=== PATIENT | female | born 2000 | race Caucasian/White ===

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

== ENCOUNTER 2023-01-13 14:56 | Day surgery (SDC) | payer BC ==
[2023-01-13 16:03] LABS: BASOPHILS ABSOLUTE AUTO 0.01 K/mm3 (0.01-0.08); BASOPHILS PERCENT AUTO 0.1 % (0.1-1.2); EOSINOPHILS ABSOLUTE AUTO 0.07 K/mm3 (0.04-0.36); EOSINOPHILS PERCENT AUTO 0.8 (0.7-5.8); HEMOGLOBIN 13.4 gm/dl (11.2-15.7); IMMATURE GRAN ABSOLUTE AUTO 0.01 K/mm3 (0.00-0.10); IMMATURE GRAN PERCENT AUTO 0.1 % (<=1.0); LYMPHOCYTES ABSOLUTE AUTO 1.76 K/mm3 (1.18-3.74); LYMPHOCYTES PERCENT AUTO 19.9 % (19.3-51.7); MEAN CORPUSCULAR HEMOGLOBIN 28.4 pg (25.6-32.2); MEAN CORPUSCULAR HGB CONC 34.4 g/dl (32.2-35.5); MEAN CORPUSCULAR VOLUME 82.6 fl (79.4-94.8); MEAN PLATELET VOLUME 8.9 fl (9.4-12.3); MONOCYTES ABSOLUTE AUTO 0.67 K/mm3 (0.24-0.36); MONOCYTES PERCENT AUTO 7.6 % (4.7-12.5); NEUTROPHILS ABSOLUTE AUTO 6.34 K/mm3 (1.56-6.13); NEUTROPHILS PERCENT AUTO 71.5 % (34.0-71.1); PLATELET COUNT,PLT 350 K/mm3 (182-369); RED BLOOD CELL COUNT 4.72 M/mm3 (3.98-5.22); WHITE BLOOD CELL COUNT,WBC 8.86 K/mm3 (3.98-10.04)
[2023-01-13] MEDS ORDERED: Acetaminophen 325 MG Tab PO ONE (18:16)
[2023-01-13] MEDS ORDERED: ceFAZolin 2 GM in Sodium Chloride 0.9% 50 ML IV ONE (19:05)
[2023-01-13] MEDS ORDERED: Lidocaine 1% 2 ML ONE (19:23)
[2023-01-13] MEDS ORDERED: fentaNYL 100 MCG/2 ML SDV ONE (19:23)
[2023-01-13] MEDS ORDERED: Propofol 200 MG/20 ML SDV ONE (19:23)
[2023-01-13] MEDS ORDERED: Ondansetron 4 MG/2 ML SDV ONE (19:23)
[2023-01-13] MEDS ORDERED: Midazolam 1 MG/ML 2 ML SDV ONE (19:24)
[2023-01-13] MEDS ORDERED: Lidocaine 1% 20 ML MDV ONE (19:35)
[2023-01-13] MEDS ORDERED: Methylergonovine 0.2 MG/1 ML Amp ONE (20:00)
[2023-01-13] MEDS ORDERED: Oxytocin 10 Units/1 ML SDV ONE (20:20)
[2023-01-13] MEDS ORDERED: Acetaminophen/HYDROcodone 325-5 MG Tab PO ONE (22:30)
== END 2023-01-13 23:00 | disposition home or self-care (01) ==
LOC: JD.ED 14:56 → JD.SDS 19:32
PROVIDERS: ATTEND Obstetrics & Gynecology
DX: O01.0 Classical hydatidiform mole (principal); J45.909 Unspecified asthma, uncomplicated; K21.9 Gastro-esophageal reflux disease without esophagitis; G43.909 Migraine, unspecified, not intractable, without status migrainosus; F41.9 Anxiety disorder, unspecified; F32.A Depression, unspecified; F90.9 Attention-deficit hyperactivity disorder, unspecified type; Z91.040 Latex allergy status; Z88.8 Allergy status to other drugs, medicaments and biological substances; Z88.5 Allergy status to narcotic agent; Z79.899 Other long term (current) drug therapy; Z87.891 Personal history of nicotine dependence
CPT/HCPCS: 36415; 59870; 76817; 84702; 85025; 86850; 86900; 86901; 96365; 99284; A9270; J0690; J2210; J2250; J2405; J2590; J2704; J3010; J3490; 01965

== ENCOUNTER 2023-07-04 22:42 | Emergency (ER) | payer BC ==
[2023-07-04] MEDS ORDERED: diphenhydrAMINE 50 MG/ML SDV IVPUSH ONE (22:59)
[2023-07-04] MEDS ORDERED: Haloperidol Lactate 5 MG/ML SDV IVPUSH ONE (22:59)
[2023-07-04] MEDS ORDERED: Lactated Ringers 1,000 ML IV ONE (23:01)
[2023-07-04] MEDS ORDERED: Sodium Chloride 0.9% 10 ML Syringe FLUSH PRN (23:02)
[2023-07-04 23:05] LABS: BASOPHILS PERCENT AUTO 0.5 % (0.0-1.0); EOSINOPHILS PERCENT AUTO 0.1 % (0.0-6.0); HEMOGLOBIN 14.6 gm/dl (12.0-16.0); IMMATURE GRAN ABSOLUTE AUTO 0.02 K/mm3 (0.00-0.05); IMMATURE GRAN PERCENT AUTO 0.3 % (0.0-0.4); LYMPHOCYTES ABSOLUTE AUTO 2.4 K/mm3 (1.0-4.8); LYMPHOCYTES PERCENT AUTO 30.7 % (24.0-44.0); MEAN CORPUSCULAR HEMOGLOBIN 28.2 pg (28.0-32.0); MEAN CORPUSCULAR VOLUME 83.2 fl (83.0-99.0); MEAN PLATELET VOLUME 8.2 fl (9.4-12.3); MONOCYTES ABSOLUTE AUTO 0.6 K/mm3 (0.0-0.8); MONOCYTES PERCENT AUTO 7.5 % (0.0-8.0); NEUTROPHILS ABSOLUTE AUTO 4.8 K/mm3 (1.8-7.7); NEUTROPHILS PERCENT AUTO 60.9 % (41.0-71.0); PLATELET COUNT,PLT 391 K/mm3 (150-400); RED BLOOD CELL COUNT 5.17 M/mm3 (4.10-5.30); WHITE BLOOD CELL COUNT,WBC 7.89 K/mm3 (3.9-11.3)
[2023-07-04 23:17] LABS: APPEARANCE,URINE CLEAR (Clear); BILIRUBIN,URINE NEGATIVE (Negative); COLOR,URINE YELLOW (Yellow); GLUCOSE,URINE NEGATIVE (Negative); KETONES,URINE NEGATIVE (Negative); LEUKOCYTE ESTERASE,URINE NEGATIVE (Negative); NITRITE,URINE NEGATIVE (Negative); OCCULT BLOOD,URINE NEGATIVE (Negative); PROTEIN,URINE NEGATIVE (Negative); UROBILINOGEN,URINE 0.2 (0.2-1.0)
[2023-07-04 23:24] LABS: BARBITURATE SCREEN,URINE NEGATIVE (CUTOFF=200); BENZODIAZEPINES SCREEN,URINE NEGATIVE (CUTOFF=150); BUPRENORPHINE SCREEN,URINE NEGATIVE (CUTOFF=10); METHADONE SCREEN, URINE NEGATIVE (CUTOFF=200); METHAMPHETAMINES SCREEN, URINE NEGATIVE (CUTOFF=500); OXYCODONE SCREEN,URINE NEGATIVE (CUT0FF=100); THC SCREEN,URINE 20 NG/ML NEGATIVE (CUTOFF=50)
[2023-07-04 23:26] LABS: AMPHETAMINES SCREEN, URINE NEGATIVE (CUTOFF=500)
[2023-07-04 23:30] LABS: BACTERIA,URINE OCCASIONAL /hpf (FEW); MUCUS,URINE NOT SEEN /hpf (FEW); RBC,URINE 0-5 /hpf (0-5); SQUAMOUS EPITHELIAL CELLS,UR 0-5 /hpf (0-5); WBC,URINE 0-5 /hpf (0-5)
[2023-07-04 23:31] LABS: A/G RATIO 1.1 (1-2); ALANINE AMINOTRANSFERASE,ALT 32 U/L (14-59); ALBUMIN 4.3 g/dl (3.4-5.0); ALKALINE PHOSPHATASE 63 U/L (46-116); ANION GAP 17.5 (5-15); ASPARTATE AMNIOTRANSFERASE,AST 24 U/L (15-37); BILIRUBIN TOTAL 0.3 mg/dL (0.2-1.0); BLOOD UREA NITROGEN,BUN 4 mg/dL (7-18); BUN/CREATININE RATIO 4.4 (14-18); CALCIUM 8.8 mg/dL (8.5-10.1); CARBON DIOXIDE,CO2 22 mEq/L (21-32); CHLORIDE,CL 106 mEq/L (98-107); CREATININE 0.9 mg/dL (0.55-1.02); ESTIMATED GFR 93 mL/min (>60); ETHANOL BLOOD MEDICAL 0.23 gm% (0.00); GLUCOSE RANDOM 73 mg/dL (70-99); MAGNESIUM 2.2 mg/dL (1.8-2.4); PROTEIN TOTAL,TP 8.3 g/dl (6.4-8.2); SODIUM,NA 143 mEq/L (136-145)
[2023-07-04 23:32] LABS: POTASSIUM,K 2.5 mEq/L (3.5-5.1)
[2023-07-04] MEDS ORDERED: Potassium Chloride 20 MEQ Tab.ER PO ONE (23:34)
[2023-07-05] MEDS ORDERED: Potassium Chloride 20 MEQ Tab.ER ONE (05:33)
== END 2023-07-05 06:24 | disposition home or self-care (01) ==
LOC: JD.ED 22:42
DX: F10.921 Alcohol use, unspecified with intoxication delirium (principal); E87.6 Hypokalemia; Y90.7 Blood alcohol level of 200-239 mg/100 ml; Z86.16 Personal history of COVID-19; Z91.040 Latex allergy status; Z88.6 Allergy status to analgesic agent
CPT/HCPCS: 36415; 80053; 80306; 80307; 81001; 83735; 85025; 96374; 96375; 99284; A9270; J1200; J1630; J3490; J7120

== ENCOUNTER 2023-08-26 11:11 | Emergency (ER) | payer BC ==
[2023-08-26] MEDS: Albuterol/Ipratropium 3.0-0.5 MG/3 ML Neb Soln NEB ONE (12:16)
== END 2023-08-26 12:50 | disposition home or self-care (01) ==
LOC: JD.ED 11:11
DX: J45.909 Unspecified asthma, uncomplicated (principal); J40 Bronchitis, not specified as acute or chronic; Z88.5 Allergy status to narcotic agent; Z91.040 Latex allergy status; Z88.8 Allergy status to other drugs, medicaments and biological substances; Z79.899 Other long term (current) drug therapy; Z86.16 Personal history of COVID-19
CPT/HCPCS: 71046; 71046-26; 94640; 99283; 99285; J7620-GY

== ENCOUNTER 2024-04-15 07:06 | Inpatient (IN) | payer BC ==
[~2024-04-15 07:06] MED LIST: Bupivacaine 0.25% 10 ML SDV ONE; Lidocaine 1.5% with EPINEPHrine 1:200,000 5 ML Amp ONE
[2024-04-15] MEDS ORDERED: Ondansetron 4 MG/2 ML SDV IVPUSH PRN (07:16)
[2024-04-15] MEDS ORDERED: Nalbuphine 10 MG/1 ML Vial IVPUSH PRN (07:16)
[2024-04-15] MEDS ORDERED: Calcium Carbonate 500 MG Tab.Chew PO PRN (07:16)
[2024-04-15] MEDS ORDERED: Sodium Chloride 0.9% 10 ML Syringe FLUSH PRN (07:16)
[2024-04-15 07:44] LABS: BASOPHILS PERCENT AUTO 0.3 % (0.0-1.0); EOSINOPHILS ABSOLUTE AUTO 0.1 K/mm3 (0.0-0.4); EOSINOPHILS PERCENT AUTO 1.1 % (0.0-6.0); HEMATOCRIT 38.1 % (37.0-47.0); IMMATURE GRAN ABSOLUTE AUTO 0.06 K/mm3 (0.00-0.05); IMMATURE GRAN PERCENT AUTO 0.8 % (0.0-0.4); LYMPHOCYTES ABSOLUTE AUTO 1.8 K/mm3 (1.0-4.8); LYMPHOCYTES PERCENT AUTO 25.1 % (24.0-44.0); MEAN CORPUSCULAR HEMOGLOBIN 27.3 pg (28.0-32.0); MEAN CORPUSCULAR HGB CONC 32.5 g/dl (32.0-36.0); MEAN CORPUSCULAR VOLUME 83.9 fl (83.0-99.0); MEAN PLATELET VOLUME 9.4 fl (9.4-12.3); MONOCYTES ABSOLUTE AUTO 0.5 K/mm3 (0.0-0.8); MONOCYTES PERCENT AUTO 6.7 % (0.0-8.0); NEUTROPHILS ABSOLUTE AUTO 4.8 K/mm3 (1.8-7.7); RED BLOOD CELL COUNT 4.54 M/mm3 (4.10-5.30); WHITE BLOOD CELL COUNT,WBC 7.32 K/mm3 (3.9-11.3)
[2024-04-15 07:45] LABS: HEMOGLOBIN 12.4 gm/dl (12.0-16.0); PLATELET COUNT,PLT 162 K/mm3 (150-400)
[2024-04-15] MEDS ORDERED: Oxytocin/0.9 % Sodium Chloride 30 UNIT/500 ML BAG IV SCH (08:15)
[2024-04-15] MEDS: Oxytocin/0.9 % Sodium Chloride 30 UNIT/500 ML BAG IV SCH (08:30)
[2024-04-15] MEDS: Lactated Ringers 1,000 ML IV SCH (08:30)
[2024-04-15] MEDS ORDERED: Labetalol 100 MG Tab PO SCH (09:00)
[2024-04-15] MEDS ORDERED: Sodium Chloride 0.9% 10 ML Syringe FLUSH SCH (09:00)
[2024-04-15] MEDS: Labetalol 100 MG Tab PO SCH (09:04)
[2024-04-15] MEDS ORDERED: ePHEDrine 50 MG/ML SDV IVPUSH PRN (12:12)
[2024-04-15] MEDS ORDERED: diphenhydrAMINE 50 MG/ML SDV IVPUSH PRN (12:12)
[2024-04-15] MEDS: fentaNYL 100 MCG/2 ML SDV EPIDUR PRN (12:25)
[2024-04-15] MEDS: Bupivacaine/fentaNYL/NS 100 ML Bag EPIDUR PRN (12:25)
[2024-04-15] MEDS: Methylergonovine 0.2 MG/1 ML Amp IM STA ×3 (19:15→23:09)
[2024-04-15] MEDS: Ondansetron 4 MG/2 ML SDV IVPUSH ONE (19:40)
[2024-04-15] MEDS: Misoprostol 200 MCG Tab BUCCAL STA (20:18)
[2024-04-15] MEDS: Ibuprofen 600 MG Tab PO SCH (20:47)
[2024-04-15] MEDS: Benzocaine/Menthol 20%-0.5% Spray 78 GM Cannister TOP PRN (21:53)
[2024-04-15] MEDS: Acetaminophen 325 MG Tab PO PRN (21:53)
[2024-04-15] MEDS: Witch Hazel Medicated Pads 40/Jar TOP PRN (21:54)
[2024-04-15] MEDS ORDERED: Methylergonovine 0.2 MG/1 ML Amp IM SCH (23:15)
[2024-04-16] MEDS: Ondansetron 4 MG/2 ML SDV IVPUSH ONE (00:16)
[2024-04-16] MEDS: Lactated Ringers 500 ML IV ONE (00:26)
[2024-04-16] MEDS: Methylergonovine 0.2 MG/1 ML Amp IM SCH (03:39)
[2024-04-16] MEDS: Ibuprofen 600 MG Tab PO SCH (10:27)
[2024-04-16] MEDS: Docusate Sodium 100 MG Cap PO PRN (12:06)
== END 2024-04-16 22:00 | disposition home or self-care (01) | DRG 560 ==
LOC: JD.OB 07:06 → OBSVTOIN 19:08 → JD.OB 19:09
PROVIDERS: ADMIT Obstetrics & Gynecology; ATTEND Obstetrics & Gynecology
PROC: 10E0XZZ Delivery of Products of Conception, External Approach (ICD-10-PCS; principal; 2024-04-15)
PROC: 10907ZC Drainage of Amniotic Fluid, Therapeutic from Products of Conception, Via Natural or Artificial Opening (ICD-10-PCS; 2024-04-15)
PROC: 3E033VJ Introduction of Other Hormone into Peripheral Vein, Percutaneous Approach (ICD-10-PCS; 2024-04-15)
PROC: 3E0R3BZ Introduction of Anesthetic Agent into Spinal Canal, Percutaneous Approach (ICD-10-PCS; 2024-04-15)
PROC: 00HU33Z Insertion of Infusion Device into Spinal Canal, Percutaneous Approach (ICD-10-PCS; 2024-04-15)
PROC: 3E0P7VZ Introduction of Hormone into Female Reproductive, Via Natural or Artificial Opening (ICD-10-PCS; 2024-04-15)
DX: O62.2 Other uterine inertia (principal); Z37.0 Single live birth; Z3A.39 39 weeks gestation of pregnancy; Z91.040 Latex allergy status; Z88.8 Allergy status to other drugs, medicaments and biological substances; Z86.16 Personal history of COVID-19; Z87.891 Personal history of nicotine dependence
CPT/HCPCS: 36415; 51701; 51702; 59025; 59409; 85025; 86592; 86850; 86900; 86901; A9270-GY; C1758; J0665; J2210; J2405; J3010; J3490; J7120; J7999

== ENCOUNTER 2024-09-24 06:10 | Day surgery (SDC) | payer BC, MEDICAID ==
[~2024-09-24 06:10] MED LIST changes: -Bupivacaine 0.25% 10 ML SDV ONE; +Dexamethasone 4 MG/ML 5 ML MDV ONE; +Lactated Ringers 1,000 ML ONE; +Lidocaine 1% 4 ML ONE; -Lidocaine 1.5% with EPINEPHrine 1:200,000 5 ML Amp ONE; +Midazolam 1 MG/ML 2 ML SDV ONE; +Ondansetron 4 MG/2 ML SDV ONE; +Propofol 200 MG/20 ML SDV ONE; +Rocuronium 50 MG/5 ML Vial ONE; +Sodium Chloride 0.9% 10 ML Syringe FLUSH PRN; +Sodium Chloride 0.9% 10 ML Syringe FLUSH SCH; +ceFAZolin 2 GM Vial ONE; +dexmedeTOMIDine HCl 200 MCG/2 ML SDV ONE; +fentaNYL 250 MCG/5 ML SDV ONE
[2024-09-24] MEDS ORDERED: ePHEDrine 50 MG/ML SDV ONE (06:33)
[2024-09-24] MEDS: Lactated Ringers 1,000 ML IV SCH (06:38)
[2024-09-24] MEDS ORDERED: Glycopyrrolate 0.2 MG/ML 2 ML SDV ONE (06:40)
[2024-09-24 06:49] LABS: BASOPHILS PERCENT AUTO 0.5 % (0.0-1.0); EOSINOPHILS ABSOLUTE AUTO 0.2 K/mm3 (0.0-0.4); EOSINOPHILS PERCENT AUTO 2.6 % (0.0-6.0); HEMOGLOBIN 13.8 gm/dl (12.0-16.0); IMMATURE GRAN ABSOLUTE AUTO 0.02 K/mm3 (0.00-0.05); IMMATURE GRAN PERCENT AUTO 0.3 % (0.0-0.4); LYMPHOCYTES ABSOLUTE AUTO 3.1 K/mm3 (1.0-4.8); LYMPHOCYTES PERCENT AUTO 45.8 % (24.0-44.0); MEAN CORPUSCULAR HGB CONC 34.5 g/dl (32.0-36.0); MEAN PLATELET VOLUME 8.6 fl (9.4-12.3); MONOCYTES ABSOLUTE AUTO 0.4 K/mm3 (0.0-0.8); MONOCYTES PERCENT AUTO 6.2 % (0.0-8.0); NEUTROPHILS PERCENT AUTO 44.6 % (41.0-71.0); RED BLOOD CELL COUNT 4.76 M/mm3 (4.10-5.30); WHITE BLOOD CELL COUNT,WBC 6.66 K/mm3 (3.9-11.3)
[2024-09-24 06:52] LABS: PLATELET COUNT,PLT 307 K/mm3 (150-400)
[2024-09-24 07:05] LABS: ANION GAP 11.4 (5-15); BUN/CREATININE RATIO 21.7 (14-18); CALCIUM 9.1 mg/dL (8.5-10.1); CREATININE 0.6 mg/dL (0.55-1.02); EST CRCL DRUG DOSING (CG) 121.62 mL/min; POTASSIUM,K 3.4 mEq/L (3.5-5.1)
[2024-09-24] MEDS ORDERED: Sugammadex Sodium 200 MG/2 ML VIAL IV ONE (07:08)
[2024-09-24] MEDS ORDERED: fentaNYL 100 MCG/2 ML SDV ONE (07:43)
[2024-09-24] MEDS: Bupivacaine 0.5% 30 ML SDV ONE (07:53)
[2024-09-24] MEDS ORDERED: Ondansetron 4 MG/2 ML SDV IVPUSH PRN (08:06)
[2024-09-24] MEDS: Bupivacaine 0.25% 10 ML SDV ONE (08:20)
[2024-09-24] MEDS: EPINEPHrine 1 MG/ML SDV ONE (08:20)
[2024-09-24] MEDS: fentaNYL 100 MCG/2 ML SDV IVPUSH PRN (09:40)
[2024-09-24] MEDS: Acetaminophen/HYDROcodone 325-5 MG Tab PO PRN (10:30)
== END 2024-09-24 11:55 | disposition home or self-care (01) ==
LOC: JD.SDS 06:10
PROVIDERS: ATTEND Obstetrics & Gynecology
DX: N80.03 Adenomyosis of the uterus (principal); N83.8 Other noninflammatory disorders of ovary, fallopian tube and broad ligament; N88.8 Other specified noninflammatory disorders of cervix uteri; Z87.891 Personal history of nicotine dependence; Z79.899 Other long term (current) drug therapy
CPT/HCPCS: 36415; 58552; 80048; 81025; 85025; 86850; 86900; 86901; A9270; J0171; J0665; J0690; J1100; J2003; J2250; J2405; J2704; J3010; J3490; J7120; 00944; J1596

== ENCOUNTER 2024-09-24 19:37 | Emergency (ER) | payer BC, MEDICAID ==
[2024-09-24] MEDS ORDERED: Sodium Chloride 0.9% 10 ML Syringe FLUSH PRN (20:17)
[2024-09-24] MEDS: Sodium Chloride 0.9% 1,000 ML IV SCH (20:30)
[2024-09-24] MEDS: HYDROmorphone 0.5 MG/0.5 ML Syringe IVPUSH ONE (20:31)
[2024-09-24] MEDS: Ondansetron 4 MG/2 ML SDV IVPUSH ONE (20:32)
[2024-09-24] MEDS: Sodium Chloride 0.9% 10 ML Syringe FLUSH PRN (20:32)
[2024-09-24 20:37] LABS: BASOPHILS PERCENT AUTO 0.1 % (0.0-1.0); EOSINOPHILS ABSOLUTE AUTO 0.1 K/mm3 (0.0-0.4); EOSINOPHILS PERCENT AUTO 1.3 % (0.0-6.0); HEMATOCRIT 37.1 % (37.0-47.0); HEMOGLOBIN 13.2 gm/dl (12.0-16.0); IMMATURE GRAN ABSOLUTE AUTO 0.04 K/mm3 (0.00-0.05); IMMATURE GRAN PERCENT AUTO 0.4 % (0.0-0.4); LYMPHOCYTES ABSOLUTE AUTO 1.9 K/mm3 (1.0-4.8); LYMPHOCYTES PERCENT AUTO 18.9 % (24.0-44.0); MEAN CORPUSCULAR HEMOGLOBIN 29.6 pg (28.0-32.0); MEAN CORPUSCULAR HGB CONC 35.6 g/dl (32.0-36.0); MEAN CORPUSCULAR VOLUME 83.2 fl (83.0-99.0); MEAN PLATELET VOLUME 8.6 fl (9.4-12.3); MONOCYTES ABSOLUTE AUTO 0.6 K/mm3 (0.0-0.8); MONOCYTES PERCENT AUTO 5.5 % (0.0-8.0); NEUTROPHILS ABSOLUTE AUTO 7.6 K/mm3 (1.8-7.7); NEUTROPHILS PERCENT AUTO 73.8 % (41.0-71.0); PLATELET COUNT,PLT 315 K/mm3 (150-400); RED BLOOD CELL COUNT 4.46 M/mm3 (4.10-5.30); WHITE BLOOD CELL COUNT,WBC 10.24 K/mm3 (3.9-11.3)
[2024-09-24] MEDS: fentaNYL 100 MCG/2 ML SDV IVPUSH ONE ×2 (20:42→21:52)
[2024-09-24] MEDS: Iopamidol 612 MG/ML 100 ML Bottle IVPUSH ONE (20:54)
[2024-09-24 21:04] LABS: A/G RATIO 1.4 (1-2); ALANINE AMINOTRANSFERASE,ALT 20 U/L (14-59); ALKALINE PHOSPHATASE 123 U/L (46-116); ANION GAP 13.7 (5-15); ASPARTATE AMNIOTRANSFERASE,AST 12 U/L (15-37); BILIRUBIN TOTAL 0.5 mg/dL (0.2-1.0); BLOOD UREA NITROGEN,BUN 6 mg/dL (7-18); CALCIUM 9.2 mg/dL (8.5-10.1); CARBON DIOXIDE,CO2 24 mEq/L (21-32); CHLORIDE,CL 100 mEq/L (98-107); CREATININE 0.6 mg/dL (0.55-1.02); ESTIMATED GFR 130 mL/min (>60); GLUCOSE RANDOM 121 mg/dL (70-99); POTASSIUM,K 3.7 mEq/L (3.5-5.1); PROTEIN TOTAL,TP 6.9 g/dl (6.4-8.2); SODIUM,NA 134 mEq/L (136-145)
[2024-09-24 21:08] LABS: INR 1.03; PROTHROMBIN TIME 10.9 SECONDS (9.7-12.0)
[2024-09-24 21:09] LABS: PTT,PARTIAL THROMBOPLSTIN TIME 25.4 SECONDS (21.7-31.4)
== END 2024-09-24 22:07 | disposition home or self-care (01) ==
LOC: JD.ED 19:37
DX: G89.18 Other acute postprocedural pain (principal); R10.30 Lower abdominal pain, unspecified; Z91.040 Latex allergy status; Z88.5 Allergy status to narcotic agent; Z79.51 Long term (current) use of inhaled steroids; Z79.899 Other long term (current) drug therapy; Z86.16 Personal history of COVID-19
CPT/HCPCS: 36415; 74177; 74177-26; 80053; 85025; 85610; 85730; 96361; 96374; 96375; 96376; 99282; 99284-25; J2405; J3010; J7030; Q9967

== ENCOUNTER 2024-10-11 19:59 | Emergency (ER) | payer BC, MEDICAID ==
[2024-10-11] MEDS: diphenhydrAMINE 50 MG/ML SDV IVPUSH ONE (21:58)
[2024-10-11] MEDS: Sodium Chloride 0.9% 1,000 ML IV ONE (21:58)
[2024-10-11] MEDS: Metoclopramide 10 MG/2 ML SDV IVPUSH ONE (21:58)
[2024-10-11 22:18] LABS: BASOPHILS ABSOLUTE AUTO 0.1 K/mm3 (0.0-0.2); BASOPHILS PERCENT AUTO 0.6 % (0.0-1.0); EOSINOPHILS ABSOLUTE AUTO 0.4 K/mm3 (0.0-0.4); EOSINOPHILS PERCENT AUTO 3.8 % (0.0-6.0); HEMATOCRIT 36.5 % (37.0-47.0); HEMOGLOBIN 12.3 gm/dl (12.0-16.0); IMMATURE GRAN ABSOLUTE AUTO 0.02 K/mm3 (0.00-0.05); IMMATURE GRAN PERCENT AUTO 0.2 % (0.0-0.4); LYMPHOCYTES ABSOLUTE AUTO 2.2 K/mm3 (1.0-4.8); LYMPHOCYTES PERCENT AUTO 21.8 % (24.0-44.0); MEAN CORPUSCULAR HEMOGLOBIN 28.6 pg (28.0-32.0); MEAN CORPUSCULAR HGB CONC 33.7 g/dl (32.0-36.0); MEAN CORPUSCULAR VOLUME 84.9 fl (83.0-99.0); MEAN PLATELET VOLUME 8.5 fl (9.4-12.3); MONOCYTES ABSOLUTE AUTO 0.7 K/mm3 (0.0-0.8); MONOCYTES PERCENT AUTO 6.4 % (0.0-8.0); NEUTROPHILS ABSOLUTE AUTO 6.8 K/mm3 (1.8-7.7); NEUTROPHILS PERCENT AUTO 67.2 % (41.0-71.0); PLATELET COUNT,PLT 313 K/mm3 (150-400); WHITE BLOOD CELL COUNT,WBC 10.13 K/mm3 (3.9-11.3)
[2024-10-11 22:40] LABS: A/G RATIO 1.2 (1-2); ALBUMIN 3.8 g/dl (3.4-5.0); ANION GAP 12.4 (5-15); BILIRUBIN TOTAL 0.3 mg/dL (0.2-1.0); BUN/CREATININE RATIO 13.3 (14-18); CALCIUM 9.2 mg/dL (8.5-10.1); CREATININE 0.6 mg/dL (0.55-1.02); EST CRCL DRUG DOSING (CG) 132.34 mL/min; POTASSIUM,K 3.4 mEq/L (3.5-5.1)
== END 2024-10-11 23:00 | disposition home or self-care (01) ==
LOC: JD.ED 19:59
DX: R11.2 Nausea with vomiting, unspecified (principal); R51.9 Headache, unspecified; J45.909 Unspecified asthma, uncomplicated; Z91.040 Latex allergy status; Z88.5 Allergy status to narcotic agent; Z79.51 Long term (current) use of inhaled steroids; Z79.899 Other long term (current) drug therapy; Z86.16 Personal history of COVID-19
CPT/HCPCS: 36415; 80053; 85025; 96361; 96374; 96375; 99284-25; J1200; J2765; J7030